=== PATIENT | male | born 1985 ===

== ENCOUNTER 2016-06-05 14:47 | Emergency (ER) | payer OTHER, MEDICAID ==
[2016-06-05 15:14] VITALS: RESP 18; TEMP 98.8; O2SAT 99
[2016-06-05] MEDS ORDERED: TDAP Vaccine 0.5 mL Syr IM ONE (15:16)
[2016-06-05] MEDS ORDERED: Oxycodone/Acetaminophen 5/325 mg Tab PO STA (15:16)
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
[2016-06-05 16:51] VITALS: BP 142/78; PULSE 96
== END 2016-06-05 17:30 | disposition home or self-care (01) ==
LOC: ED 14:47
DX: T20.10XA Burn of first degree of head, face, and neck, unspecified site, initial encounter (principal); X13.1XXA Other contact with steam and other hot vapors, initial encounter; Y93.89 Activity, other specified; Y92.89 Other specified places as the place of occurrence of the external cause; Y99.8 Other external cause status; Z23 Encounter for immunization